=== PATIENT | female | born 2000 | race Caucasian/White ===

== ENCOUNTER 2020-02-15 17:55 | Emergency (ER) | payer SELFPAY ==
[2020-02-15] MEDS ORDERED: AMOXICILLIN & POT CLAVULANATE 875 MG TAB PO ONE (18:16)
--- NOTE | 2020-02-15 18:19 | ED.PDOC ---
History of Present Illness - General Chief Complaint: Bite: Animal/Insect/Human Stated Complaint: possible spider bite Time Seen by Provider: 02/15/20 18:05 Source: patient Exam Limitations: no limitations - History of Present Illness Initial Comments: Patient is 19-year-old female presented emergency room secondary to erythema and pain starting between the webbing of the fourth and fifth digits of the left foot and extending up the dorsum of the foot. There is no flora purulence. There is the area between her toes that appears to be like a mild open blister as the originating point. I see no evidence of any foreign body at this time. Erythema extends about an inch proximally at the dorsal aspect of the foot. Range of motion is preserved. There is nothing to culture at this point. Timing/Duration: other - Patient reports 2 days Severity: moderate Improving Factors: nothing Worsening Factors: nothing Associated Symptoms: denies symptoms Allergies/Adverse Reactions: Allergies NO KNOWN ALLERGY Allergy (Verified 01/24/16 20:32) Home Medications: Ambulatory Orders Amoxicillin & Pot Clavulanate [Augmentin Tab] 875 mg PO BID #14 tab 02/15/20 Sulfa/Trimeth 800/160 (Ds) Tab [Bactrim DS Tab] 1 ea PO BID #14 tab 02/15/20 Review of Systems - Review of Systems Constitutional: States: no symptoms reported EENTM: States: no symptoms reported Respiratory: States: no symptoms reported Cardiology: States: no symptoms reported Gastrointestinal/Abdominal: States: no symptoms reported Genitourinary: States: no symptoms reported Musculoskeletal: States: see HPI Skin: States: see HPI Neurological: States: no symptoms reported Endocrine: States: no symptoms reported All other Systems: No Change from Baseline Past Medical History (General) - Patient Medical History Hx Asthma: No Hx Diabetes: No Family Medical History - Family History Mother Family History: No Known Physical Exam - Physical Exam General Appearance: Alert, Comfortable, No apparent distress Eye Exam: bilateral normal Ears, Nose, Throat: hearing grossly normal Respiratory: no respiratory distress, no accessory muscle use Cardiovascular/Chest: normal peripheral pulses, no edema Peripheral Pulses: dorsalis pedis,right: 2+, dorsalis pedis,left: 2+ Rectal Exam: deferred Extremity: normal range of motion, no pedal edema, no calf tenderness, normal capillary refill 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 The patient needs to trace out the area of redness with a pen and take a picture of it daily to make sure that after the next 24 to 36 hours it is improving. The patient is going to be placed on Bactrim and Augmentin for the next 7 days. First doses are given tonight. She also needs to wash it 2-3 times daily with a good antibacterial soap and water and then apply Neosporin after that. She needs to walk around in close toed shoes. Patient needs to return to the emergency room if it is a significantly worsening in spite of these measures. ER warnings are given. gil [email or web address] [id number] Departure - Departure Clinical Impression: Cellulitis ICD-10 Supporting Text: Left foot initial evaluation. Disposition: Discharge to Home or Self Care Condition: Fair Departure Forms: ED Discharge - Pt. Copy, Patient Portal Self Enrollment Diet: regular diet Activity: increase activity as tolerated Referrals: Ji Woodson MD [Primary Care Provider] - 1-2 Weeks Prescriptions: Amoxicillin & Pot Clavulanate [Augmentin Tab] 875 mg PO BID #14 tab Sulfa/Trimeth 800/160 (Ds) Tab [Bactrim DS Tab] 1 ea PO BID #14 tab Home Medications: Ambulatory Orders Amoxicillin & Pot Clavulanate [Augmentin Tab] 875 mg PO BID #14 tab 02/15/20 Sulfa/Trimeth 800/160 (Ds) Tab [Bactrim DS Tab] 1 ea PO BID #14 tab 02/15/20 Additional Instructions: The patient is a 19-year-old female presented emergency room with cellulitis of the left foot starting between the webbing of the fourth and fifth digits of the left foot. The patient needs to trace out the area of redness with a pen and take a picture of it daily to make sure that after the next 24 to 36 hours it is improving. The patient is going to be placed on Bactrim and Augmentin for the next 7 days. First doses are given tonight. She also needs to wash it 2-3 times daily with a good antibacterial soap and water and then apply Neosporin after that. She needs to walk around in close toed shoes. Patient needs to return to the emergency room if it is a significantly worsening in spite of these measures. ER warnings are given.
[2020-02-15] MEDS: SULFA/TRIMETH 800/160 (DS) TAB 1 EA TAB PO ONE ×2 (18:23→18:28)
[2020-02-15] MEDS ORDERED: rifAMPin 300 MG CAP PO ONE (18:27)
[2020-02-15 18:55] VITALS: BP 117/78; TEMP 98.4; O2SAT 98
== END 2020-02-15 18:45 | disposition home or self-care (01) ==
LOC: ER 17:55
DX: L03.116 Cellulitis of left lower limb (principal)